=== PATIENT | female | born 1945 | race Caucasian/White ===

== ENCOUNTER 2018-06-23 07:50 | Day surgery (SDC) | payer MEDICARE, BC ==
[2018-06-23] MEDS ORDERED: Sodium Chloride 0.9% 10 ML Syringe IV ONE (07:51)
[2018-06-23] MEDS ORDERED: Dexamethasone 4 MG/ML SDV IV ONE (07:51)
[2018-06-23] MEDS ORDERED: Midazolam 1 MG/ML 2 ML SDV IV ONE (07:51)
[2018-06-23] MEDS ORDERED: Cataract Ophth Solution EYELF ONE (08:00)
[2018-06-23] MEDS ORDERED: Sodium Chloride 0.9% 10 ML Syringe FLUSH PRN (08:00)
[2018-06-23] MEDS ORDERED: Moxifloxacin 0.5% Ophth Soln 3 ML Bottle EYELF ONE (08:00)
[2018-06-23] MEDS ORDERED: Proparacaine 0.5% Ophth Soln 15 ML Bottle EYELF ONE (08:00)
[2018-06-23] MEDS ORDERED: Timolol Maleate 0.5% Ophth Soln 5 ML Bottle EYELF ONE (08:00)
[2018-06-23] MEDS ORDERED: Phenylephrine 10% Ophth Soln 5 ML Bot EYELF PRN (08:00)
[2018-06-23] MEDS ORDERED: Ondansetron 4 MG/2 ML SDV IVPUSH PRN (08:00)
[2018-06-23] MEDS ORDERED: Povidone-Iodine 5% Sterile Ophth Soln 30 ML Bottle EYELF ONE ×2 (08:00→08:59)
[2018-06-23] MEDS ORDERED: Phenylephrine 10% Ophth Soln 5 ML Bot EYELF ONE (08:00)
[2018-06-23] MEDS ORDERED: Acetaminophen 325 MG Tab PO PRN (08:00)
[2018-06-23] MEDS ORDERED: Tetracaine HCl/PF 0.5% 4 ML Bottle EYELF ONE (08:59)
[2018-06-23] MEDS ORDERED: Lidocaine 1% 30 ML SDV INJECT ONE (09:07)
[2018-06-23] MEDS ORDERED: Balanced Salt Solution Plus Ophth Irrig 500 ML Bottle IOCULAR ONE (09:08)
[2018-06-23] MEDS ORDERED: Chondroitin Sulfate/Hyaluronate Sodium Ophth Inj 0.75 ML Syringe EYELF ONE (09:09)
[2018-06-23] MEDS ORDERED: Vancomycin 500 MG SDV EYELF ONE (09:10)
[2018-06-23] MEDS ORDERED: Acetylcholine 20 MG/2 ML Intraocular Inj Kit EYELF ONE (09:15)
[2018-06-23] MEDS ORDERED: Diclofenac Sodium 0.1% Ophth Soln 5 ML Bottle EYELF ONE (09:18)
[2018-06-23] MEDS ORDERED: Apraclonidine 0.5% Ophth Soln 5 ML Bot EYELF ONE (09:18)
[2018-06-23] MEDS ORDERED: Dexamethasone/Tobramycin 0.1-0.3% Ophth Oint 3.5 GM Tube EYELF ONE (09:19)
--- NOTE | 2018-06-23 09:52 | OR ---
DATE: 06/23/2018 PREOPERATIVE DIAGNOSES: 1. Visually significant mixed cataract, left eye. 2. Primary open angle glaucoma, left eye. POSTOPERATIVE DIAGNOSES: 1. Visually significant mixed cataract, left eye. 2. Primary open angle glaucoma, left eye. PROCEDURES: 1. Extracapsular cataract extraction with intraocular lens implant. 2. Placement of iStent for glaucoma control. SURGEON: Leon Burns MD. ANESTHESIA: Local MAC. INDICATION: Ms. Arnett was seen in the clinic. She is complaining of change in vision, difficulty driving, difficulty reading, and necessary increased need for magnifying glass to see fine print. Clinical examination reveals visually significant mixed nuclear and cortical cataract and moderate open-angle glaucoma. I explained options; I offered cataract surgery; and I explained risks including the potential for infection, retinal detachment, and loss of vision amongst others. We discussed implant options. She has requested surgery with a monofocal implant. I offered surgery with or without the iStent. She requested the iStent procedure. OPERATIVE DESCRIPTION: The patient was prepped and draped in a sterile fashion and topical anesthesia was applied. Attention was placed on the operative eye. A sterile lid speculum was placed to allow operative exposure. Paracentesis was made temporal. Intracameral lidocaine was administered. Viscoelastic was injected. A full-thickness corneal incision was made using the trapezoidal blade. Bent needle cystotome was then used to make a small madeline in the anterior capsule, and a 360-degree curvilinear capsulorrhexis was created. Nucleus was then hydrodissected and hydrodelinated using balanced saline solution. Nucleus was then decompressed centrally and rotated and noted to be free of adhesions. Nucleus was then removed using the phacoemulsification handpiece. Additional viscoelastic was then injected into the capsular bag, and the intraocular lens was inserted into the capsular bag. The iStent portion of the procedure was then performed. Following removal of the nucleus and cortex, the irrigation and aspiration handpiece was inserted to remove viscoelastic from the posterior surface of the IOL. Additional viscoelastic was then inserted into the anterior chamber angle directly opposite the corneal incision. Miochol was injected into the nasal iris to promote pupillary contraction. The patient's head was then rotated 35 degrees away from the initial position. The operating microscope was also rotated 35 degrees to achieve the proper orientation. The gonioprism was then placed onto the eye. The iStent was then inserted into the anterior chamber with the right hand, and the stent was introduced into the pigmented trabecular meshwork. The stent was advanced beneath the trabecular meshwork until approximately two-thirds of the body was covered, and then the stent was released from the insertion device. The stent was then tapped into its final resting position using the insertion device. The device was then reinspected to ensure that it was securely in position. The viscoelastic was aspirated from the anterior chamber. Wound and paracentesis sites were hydrated using balanced saline solution. Vancomycin 0.1 mL was injected into the anterior chamber. Intraocular lens was inspected and noted to be clear and well centered. Postoperative drops were placed, and a sterile eye patch and shield were placed over the operative eye. The patient was then transported to the postoperative recovery area having tolerated the procedure well. No complications occurred. [facility] /[id number]
== END 2018-06-23 10:35 | disposition home or self-care (01) ==
LOC: DL.SDS 07:50
PROVIDERS: ATTEND Ophthalmology
DX: H25.812 Combined forms of age-related cataract, left eye (principal); E78.5 Hyperlipidemia, unspecified; H40.1122 Primary open-angle glaucoma, left eye, moderate stage; G47.00 Insomnia, unspecified; Z79.899 Other long term (current) drug therapy; Z88.8 Allergy status to other drugs, medicaments and biological substances; Z88.2 Allergy status to sulfonamides; Z91.013 Allergy to seafood
CPT/HCPCS: 00142; 0191T; 66984; A9270; C1783; J1100; J2250; J3370; J7050; V2632

== ENCOUNTER 2018-07-03 12:14 | Emergency (ER) | payer MEDICARE, BC ==
--- NOTE | 2018-07-03 12:52 | EDM.PDOC ---
Scribed by Sera Nova 07/03/18 1252 for Harsh Mendoza MD ED HPI GENERAL MEDICAL PROBLEM - General Chief Complaint: Eye Problems Stated Complaint: EYE SURG ON , Blurred vision left eye since surgery [id number] Time Seen by Provider: 07/03/18 12:18 Source of Information: Reports: Patient, Old Records, RN, RN Notes Reviewed History Limitations: Reports: No Limitations - History of Present Illness INITIAL COMMENTS - FREE TEXT/NARRATIVE: POD #10 s/p cataract removal with lens implant and stent in left eye by Dr. Leon Burns. Pt states the left eye vision has been very blurry since the surgery. She denies eye pain, pressure, bleeding, drainage/discharge. She states that she was seen in clinic on 06/30/[address] Mcdonald and was old everything looked ok, and that her eye medication may cause some blurriness. Pt states she has tried to reach Dr. Burns by phone but has not been able to reach anyone. Onset Date: 06/23/18 Duration: Constant Location: Reports: Other (left eye) Quality: Reports: Other (denies pain) Severity: Moderate Improves with: Reports: None Worsens with: Reports: None Associated Symptoms: Reports: No Other Symptoms - Related Data Allergies Allergy/AdvReac Type Severity Reaction Status Date / Time adhesive tape Allergy Blisters Verified 06/23/18 08:09 alendronate sodium Allergy Cannot Verified 07/03/18 12:23 [From Fosamax] Remember alprazolam Allergy Other Verified 06/23/18 08:09 brimonidine [From Alphagan P] Allergy Other Verified 06/23/18 08:09 gabapentin Allergy Swelling Verified 06/23/18 08:09 prednisone Allergy Other Verified 06/23/18 08:09 shellfish derived Allergy Anaphylactic Verified 06/23/18 08:09 Shock Sulfa (Sulfonamide Allergy Other Verified 06/23/18 08:09 Antibiotics) Home Meds: Home Meds Calcium Carb/Vit D3/Minerals [Calcium 600+D Plus Minerals] 1 each PO DAILY 06/22 [History] Cholecalciferol (Vitamin D3) [Vitamin D3] 1,000 unit PO DAILY 06/22/18 [History] Glycerin/Min Oil/Polycarbophil [Replens Vaginal Applicator] 35 gm VG .PRN PRN [History] Multivitamin with Minerals [Multivitamins with Minerals] 1 each PO DAILY [History] Zolpidem Tartrate [Ambien] 10 mg PO .PRN 06/22/18 [History] Dorzolamide/Timolol [Cosopt 2%-0.5% Ophth Soln] 1 drop EYEBOTH BID 07/03/18 [ History] Ketorolac [Acular 0.5% Ophth Soln] 1 drop EYELF BID 07/03/18 [History] Prednisolone Acetate/Pf [Prednisolone Acet 1% Eye Drop] 1 drop EYELF QID [History] Past Medical History HEENT History: Reports: Cataract, Glaucoma, Sinusitis, Other (See Below) Other HEENT History: seasonal allergies. 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 Post hepetic neuralgia Psychiatric History: Reports: Panic Attack Endocrine/Metabolic History: Reports: Osteoporosis Hematologic History: Reports: None Immunologic History: Reports: None Oncologic (Cancer) History: Reports: None Dermatologic History: Reports: Urticaria, Other (See Below) Other Dermatologic History: Rosacea - Infectious Disease History Infectious Disease History: Reports: Chicken Pox, Measles, Mumps, Rubella, Shingles - Past Surgical History Head Surgeries/Procedures: Reports: None HEENT Surgical History: Reports: Adenoidectomy, Tonsillectomy, Other (See Below) Other HEENT Surgeries/Procedures: eye lid lift Cardiovascular Surgical History: Reports: None GI Surgical History: Reports: None Female Surgical History: Reports: Hysterectomy, Other (See Below) Other Female Surgeries/Procedures: eptopic pregnacy and bleeding ovarian cyst Dermatological Surgical History: Reports: Skin Biopsy Social & Family History - Family History Family Medical History: Noncontributory - Caffeine Use Caffeine Use: Reports: Tea Caffeine Use Comment: occasionally ice tea - Living Situation & Occupation Living situation: Reports: , with Spouse Occupation: Retired ED ROS GENERAL - Review of Systems Review Of Systems: ROS reveals no pertinent complaints other than HPI. ED EXAM GENERAL W FULL EYE - Physical Exam Exam: See Below Exam Limited By: No Limitations General Appearance: Alert, WD/WN, No Apparent Distress Eye Exam: Right Eye: Normal Inspection, Left Eye: Abnormal Pupil (postsurgical lens implant), Vision Changes, Bilateral Eye: EOMI, PERRL Visual Acuity (R) 20/: 25 Visual Acuity (L) 20/: 50 With Correction: Yes Eyelids: Bilateral: Normal Appearance Conjunctiva & Sclera: Bilateral: Normal Appearance Cornea Exam: Bilateral: Normal Appearance Extraocular Movements: Bilateral: Intact Pupils: Normal Accommodation Pupillary Size: Bilateral: 4 mm Pupillary Reaction: Bilateral: Brisk Anterior Chamber: Bilateral: Normal Appearance Ears: Hearing Grossly Normal Nose: Normal Inspection Throat/Mouth: Normal Inspection Head: Atraumatic, Normocephalic Neck: Normal Inspection Respiratory/Chest: No Respiratory Distress Neurological: Alert, Oriented, CN II-XII Intact, Normal Cognition, Normal Gait, No Motor/Sensory Deficits Psychiatric: Normal Affect, Normal Mood Skin Exam: Warm, Dry, Intact, Normal Color, No Rash Course - Vital Signs Last Recorded V/S: Last Vital Signs Temp 36.2 C 07/03/18 12:21 Pulse 54 L 07/03/18 12:21 Resp 18 07/03/18 12:21 BP 158/70 H 07/03/18 12:21 Pulse Ox 99 07/03/18 12:21 - Re-Assessments/Exams Free Text/Narrative Re-Assessment/Exam: 07/03/18 12:[address] Ford Do via [facility] transfer/consult line. He advises that the pt should continue her current postop. care, and he will see her in clinic on Thursday. If she develops pain or worsening symptoms he can see her through the [place] [facility] where he will be covering call over the holiday . Departure - Departure Time of Disposition: 12:48 Disposition: Home, Self-Care 01 Condition: Fair Clinical Impression: Visual impairment, post-operative, cataract - Discharge Information Instructions: Blurred Vision, Adult, Cataract Surgery, Care After Forms: ED Department Discharge Additional Instructions: Follow up in clinic Thursday with Dr. Ford Do. Follow up at [facility] ER before Thursday if you develop eye pain, worsening vision, drainage, or discharge. I have read and agree with the documentation that has been completed regarding this visit. By signing this record, I attest that the documentation was completed in my physical presence and is an accurate record of the encounter.
== END 2018-07-03 12:58 | disposition home or self-care (01) ==
LOC: DL.ED 12:14
DX: T85.898A Other specified complication of other internal prosthetic devices, implants and grafts, initial encounter (principal); H54.7 Unspecified visual loss; F41.0 Panic disorder [episodic paroxysmal anxiety]; E78.00 Pure hypercholesterolemia, unspecified; Z88.8 Allergy status to other drugs, medicaments and biological substances; Z79.899 Other long term (current) drug therapy; Z98.42 Cataract extraction status, left eye; Z96.1 Presence of intraocular lens; Z98.890 Other specified postprocedural states
CPT/HCPCS: 99284

== ENCOUNTER 2019-07-08 11:55 | Emergency (ER) | payer MEDICARE, BC ==
--- NOTE | 2019-07-08 12:13 | EDM.PDOC ---
ED HPI GENERAL MEDICAL PROBLEM - General Chief Complaint: Bite:Animal, Insect Stated Complaint: PAST ALLERGY TO BEE STINGS/STUNG BY BEE @11:20 AM Time Seen by Provider: 07/08/19 12:05 Source of Information: Reports: Patient, RN, RN Notes Reviewed History Limitations: Reports: No Limitations - History of Present Illness INITIAL COMMENTS - FREE TEXT/NARRATIVE: Pt presents to ER by POV with c/o that she was stung at 1120HRS on the left ring finger. Pt states she is allergic to bees and usually has swelling at the site. She denies any history of anaphylaxis or swelling of the airway, wheezing , or difficulty breathing. She does not have an Epi-Pen. She did not take Benadryl or do any self care before coming to the ER. Pt denies any symptoms other than a small area of redness to the left 4th finger and hand. Onset: Today Onset Date: 07/08/19 Onset Time: 11:20 Location: Reports: Upper Extremity, Left Severity: Mild Improves with: Reports: None Worsens with: Reports: None Associated Symptoms: Reports: No Other Symptoms Left Finger-Ring Pain Score (Numeric/FACES): 3 - Related Data Allergies Allergy/AdvReac Type Severity Reaction Status Date / Time adhesive tape Allergy Blisters Verified 08/11/18 06:39 alendronate sodium Allergy Other Verified 08/11/18 06:39 [From Fosamax] alprazolam Allergy Rash Verified 08/11/18 06:39 bee venom protein (honey bee) Allergy Swelling Verified 07/08/19 12:06 brimonidine [From Alphagan P] Allergy Other Verified 08/11/18 06:39 gabapentin Allergy Swelling Verified 08/11/18 06:39 prednisone Allergy Other Verified 08/11/18 06:39 shellfish derived Allergy Anaphylactic Verified 08/11/18 06:39 Shock Sulfa (Sulfonamide Allergy Other Verified 08/11/18 06:39 Antibiotics) Home Meds: Home Meds Multivitamin with Minerals [Multivitamins with Minerals] 1 each PO DAILY [History] Zolpidem Tartrate [Ambien] 10 mg PO .PRN 06/22/18 [History] Calcium Carbonate/Vitamin D3 [Calcium 1,000 + D3 Caplet] 1 tab PO DAILY [History] Cholecalciferol (Vitamin D3) [Vitamin D3] 1,000 units PO DAILY 08/10/18 [History ] Latanoprost 1 drop EYELF BEDTIME 08/10/18 [History] Moxifloxacin HCl [Moxifloxacin] 1 drop EYERT ASDIRECTED 08/10/18 [History] Timolol [Betimol] 1 drop EYELF BID 08/10/18 [History] Past Medical History HEENT History: Reports: Cataract, Glaucoma, Sinusitis, Other (See Below) Other HEENT History: seasonal allergies. bilateral cataracts Cardiovascular History: Reports: High Cholesterol Respiratory History: Reports: None Gastrointestinal History: Reports: None Genitourinary History: Reports: None FAMILY LAW LEGAL ASSISTANT History: Reports: Other (See Below) Other FAMILY LAW LEGAL ASSISTANT History: postmenopausal atrophic vaginitis Musculoskeletal History: Reports: Arthritis, Osteoarthritis, Other (See Below) Other Musculoskeletal History: osteopenia Neurological History: Reports: Migraines, Other (See Below) Other Neuro History: Insomnia. Post hepetic neuralgia Psychiatric History: Reports: Panic Attack Endocrine/Metabolic History: Reports: Osteoporosis Hematologic History: Reports: None Immunologic History: Reports: None Oncologic (Cancer) History: Reports: None Dermatologic History: Reports: Urticaria, Other (See Below) Other Dermatologic History: Rosacea - Infectious Disease History Infectious Disease History: Reports: Chicken Pox, Measles, Mumps, Rubella, Shingles - Past Surgical History Head Surgeries/Procedures: Reports: None HEENT Surgical History: Reports: Adenoidectomy, Cataract Surgery, Tonsillectomy , Other (See Below) Other HEENT Surgeries/Procedures: eye lid lift Cardiovascular Surgical History: Reports: None Respiratory Surgical History: Reports: None GI Surgical History: Reports: None Female Surgical History: Reports: Hysterectomy, Other (See Below) Other Female Surgeries/Procedures: eptopic pregnacy and bleeding ovarian cyst Dermatological Surgical History: Reports: Skin Biopsy Social & Family History - Family History Family Medical History: Noncontributory - Tobacco Use Smoking Status *Q: Never Smoker - Caffeine Use Caffeine Use: Reports: Tea Caffeine Use Comment: occasionally ice tea - Recreational Drug Use Recreational Drug Use: No - Living Situation & Occupation Living situation: Reports: , with Spouse Occupation: Retired ED ROS GENERAL - Review of Systems Review Of Systems: ROS reveals no pertinent complaints other than HPI. ED EXAM, ANIMAL BITE - Physical Exam Exam: See Below Exam Limited By: No Limitations General Appearance: Alert, WD/WN, No Apparent Distress Nose: Normal Inspection, Normal Mucosa, No Blood Throat/Mouth: Normal Inspection, Normal Lips, Normal Teeth, Normal Gums, Normal Oropharynx, Normal Voice, No Airway Compromise Head: Atraumatic, Normocephalic Neck: Normal Inspection, Supple, Non-Tender, Full Range of Motion Respiratory/Chest: No Respiratory Distress, Lungs Clear, Normal Breath Sounds, No Accessory Muscle Use, Chest Non-Tender Cardiovascular: Regular Rate, Rhythm Extremities: Normal Range of Motion, No Pedal Edema, Normal Capillary Refill, Other (Mild blanching erythema to left 4th finger and dorsal left hand with no visible swelling, or FB.) Neurological: Alert, Oriented Skin Exam: Warm/Dry Course - Vital Signs Last Recorded V/S: Last Vital Signs Temp 96.8 F 07/08/19 12:00 Pulse 54 L 07/08/19 12:00 Resp 16 07/08/19 12:00 BP 159/61 H 07/08/19 12:00 Pulse Ox 100 07/08/19 12:00 - Re-Assessments/Exams Free Text/Narrative Re-Assessment/Exam: 07/08/19 12:10 No signs of any significant allergic reaction or anaphylaxis were present. Departure - Departure Time of Disposition: 12:10 Disposition: Home, Self-Care 01 Condition: Good Clinical Impression: Local reaction to bee sting Qualifiers: Encounter type: initial encounter Injury intent: accidental or unintentional Qualified Code(s): T63.441A - Toxic effect of venom of bees, accidental ( unintentional), initial encounter - Discharge Information *PRESCRIPTION DRUG MONITORING PROGRAM REVIEWED*: No *COPY OF PRESCRIPTION DRUG MONITORING REPORT IN PATIENT MACK: No Instructions: Bee, Wasp, or Hornet Sting, Adult Forms: ED Department Discharge Additional Instructions: Take Benadryl 25mg one by mouth every 6 hours as needed for allergic reaction. Apply ice packs as needed for redness or swelling. Return to ER if any difficulty breathing or other emergent symptoms develop.
== END 2019-07-08 12:17 | disposition home or self-care (01) ==
LOC: DL.ED 11:55
DX: T63.441A Toxic effect of venom of bees, accidental (unintentional), initial encounter (principal); M19.90 Unspecified osteoarthritis, unspecified site; Z98.890 Other specified postprocedural states; Z90.710 Acquired absence of both cervix and uterus; Z79.899 Other long term (current) drug therapy; Z88.2 Allergy status to sulfonamides; Z88.8 Allergy status to other drugs, medicaments and biological substances; Z91.013 Allergy to seafood; Z91.030 Bee allergy status; Z91.048 Other nonmedicinal substance allergy status
CPT/HCPCS: 99282

== ENCOUNTER 2021-04-01 11:13 | Emergency (ER) | payer MEDICARE, BC ==
[2021-04-01 12:05] LABS: ANION GAP 11.3 mEq/L (7-13); CHLORIDE,CL 104 mmol/L (98-107); SODIUM,NA 140 mmol/L (136-145)
--- NOTE | 2021-04-01 12:12 | CT ---
PROCEDURE INFORMATION: Exam: CT Head Without Contrast Exam date and time: 04/01/2021 11:57 AM Age: 76 years old Clinical indication: Altered mental status/memory loss and speech disturbance; Confusion or disorientation; Dysphasia; Additional info: Transient confusion w/slurred speech, off balance TECHNIQUE: Imaging protocol: Computed tomography of the head without contrast. Radiation optimization: All CT scans at this facility use at least one of these dose optimization techniques: automated exposure control; mA and/or kV adjustment per patient size (includes targeted exams where dose is matched to clinical indication); or iterative reconstruction. COMPARISON: No relevant prior studies available. FINDINGS: Brain: Normal. No hemorrhage. Unremarkable white matter. No mass effect. Cerebral ventricles: No ventriculomegaly. Paranasal sinuses: Visualized sinuses are unremarkable. No fluid levels. Mastoid air cells: Visualized mastoid air cells are well aerated. Bones/joints: Unremarkable. No acute fracture. Soft tissues: Unremarkable. IMPRESSION: No acute intracranial abnormality.
--- NOTE | 2021-04-01 12:40 | EDM.PDOC ---
"Scribed by Sera Nova 04/01/21 1149 for Sharlene Mendoza MD ED HPI GENERAL MEDICAL PROBLEM - General Chief Complaint: General Stated Complaint: IN BY AMBULANCE Time Seen by Provider: 04/01/21 11:17 Source of Information: Reports: Patient, EMS, EMS Notes Reviewed, RN, RN Notes Reviewed History Limitations: Reports: No Limitations - History of Present Illness INITIAL COMMENTS - FREE TEXT/NARRATIVE: Patient arrives from home to ED by [facility] with sudden onset of confusion, slurred speech, and unsteady gait that lasted for abut 10 to 15 minutes this morning while making breakfast. Pt states she was aware of what was going on, but felt that she was not able to mentally process or move correctly. The symptoms completely resolved before arrival to the ER. Denies headache, chest pain, palpitations, rapid HR, dizziness, lightheadedness, syncope, LOC, visual change, difficulty swallowing, loss of bowel or bladder control, numbness, or tingling. Patient takes Ambien at bedtime, starts with a 1/2 tab then if unable to sleep takes the other half around 0100HRS. Last night she did take the second half at 0100HRS. She had diarrhea yesterday, but feels well now. Onset: Today Duration: Constant Location: Reports: Generalized Severity: Moderate Improves with: Reports: None Worsens with: Reports: None Associated Symptoms: Reports: No Other Symptoms - Related Data Allergies Allergy/AdvReac Type Severity Reaction Status Date / Time adhesive tape Allergy Blisters Verified 04/01/21 11:30 alendronate sodium Allergy Other Verified 04/01/21 11:30 [From Fosamax] alprazolam Allergy Rash Verified 04/01/21 11:30 bee venom protein (honey bee) Allergy Swelling Verified 04/01/21 11:30 brimonidine [From Alphagan P] Allergy Other Verified 04/01/21 11:30 gabapentin Allergy Swelling Verified 04/01/21 11:30 prednisone Allergy Other Verified 04/01/21 11:30 shellfish derived Allergy Anaphylactic Verified 04/01/21 11:30 Shock Sulfa (Sulfonamide Allergy Other Verified 04/01/21 11:30 Antibiotics) Home Meds: Home Meds Multivitamin with Minerals [Multivitamins with Minerals] 1 each PO DAILY 06/22/18 [History] Zolpidem Tartrate [Ambien] 10 mg PO .PRN 06/22/18 [History] Calcium Carbonate/Vitamin D3 [Calcium 1,000 + D3 Caplet] 1 tab PO DAILY 08/10/18 [History] Cholecalciferol (Vitamin D3) [Vitamin D3] 1,000 units PO DAILY 08/10/18 [History] Latanoprost 1 drop EYELF BEDTIME 08/10/18 [History] Moxifloxacin HCl [Moxifloxacin] 1 drop EYERT ASDIRECTED 08/10/18 [History] Timolol [Betimol] 1 drop EYELF BID 08/10/18 [History] Past Medical History HEENT History: Reports: Cataract, Glaucoma, Sinusitis, Other (See Below) Other HEENT History: seasonal allergies. 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 Post hepetic neuralgia Psychiatric History: Reports: Panic Attack Endocrine/Metabolic History: Reports: Osteoporosis Hematologic History: Reports: None Immunologic History: Reports: None Oncologic (Cancer) History: Reports: None Dermatologic History: Reports: Urticaria, Other (See Below) Other Dermatologic History: Rosacea - Infectious Disease History Infectious Disease History: Reports: Chicken Pox, Measles, Mumps, Rubella, Shingles - Past Surgical History Head Surgeries/Procedures: Reports: None HEENT Surgical History: Reports: Adenoidectomy, Cataract Surgery, Tonsillectomy, Other (See Below) Other HEENT Surgeries/Procedures: eye lid lift Cardiovascular Surgical History: Reports: None Respiratory Surgical History: Reports: None GI Surgical History: Reports: None Female Surgical History: Reports: Hysterectomy, Other (See Below) Other Female Surgeries/Procedures: eptopic pregnacy and bleeding ovarian cyst Dermatological Surgical History: Reports: Skin Biopsy Social & Family History - Family History Family Medical History: No Pertinent Family History - Caffeine Use Caffeine Use: Reports: Tea Caffeine Use Comment: occasionally ice tea - Living Situation & Occupation Living situation: Reports: , with Spouse Occupation: Retired [facility] GENERAL - Review of Systems Review Of Systems: Comprehensive ROS is negative, except as noted in HPI. ED EXAM, GENERAL - Physical Exam Exam: See Below Exam Limited By: No Limitations General Appearance: Alert, WD/WN, No Apparent Distress Eye Exam: Left Eye: Conjunctival Injection (Chronic left eye redness), Bilateral Eye: EOMI, PERRL Ears: Normal External Exam, Hearing Grossly Normal Nose: Normal Inspection, Normal Mucosa, No Blood Throat/Mouth: Normal Inspection, Normal Lips, Normal Oropharynx, Normal Voice, No Airway Compromise Head: Atraumatic, Normocephalic Neck: Normal Inspection, Supple, Non-Tender, Full Range of Motion. No: Carotid Bruit, Lymphadenopathy (L), Lymphadenopathy (R) Respiratory/Chest: No Respiratory Distress, Lungs Clear, Normal Breath Sounds, No Accessory Muscle Use, Chest Non-Tender Cardiovascular: Normal Peripheral Pulses, Regular Rate, Rhythm, No Edema, No Gallop, No JVD, No Murmur, No Rub GI/Abdominal: Normal Bowel Sounds, Soft, Non-Tender, No Organomegaly, No Distention, No Abnormal Bruit, No Mass Back Exam: Normal Inspection. No: Vertebral Tenderness Extremities: Normal Inspection, Normal Range of Motion, Non-Tender, Normal Capillary Refill Neurological: Alert, Oriented, CN II-XII Intact, Normal Cognition, Normal Gait, No Motor/Sensory Deficits Psychiatric: Normal Affect, Normal Mood Skin Exam: Warm, Dry, Intact, Normal Color, No Rash #1 Interpretation EKG Date: 04/01/21 Time: 11:35 Rhythm: Other (sinus rhythm) Rate (Beats/Min): 50 [place]: Normal P-Wave: Present QRS: Other (borderline low voltage, extremity leads) ST-T: Normal QT: Normal Comparison: NA - No Prior EKG Course - Vital Signs Last Recorded V/S: Last Vital Signs Temp 98.1 F 04/01/21 11:25 Pulse 52 L 04/01/21 11:25 Resp 14 04/01/21 11:25 BP 109/66 04/01/21 11:25 Pulse Ox 100 04/01/21 11:25 Orthostatic Blood Pressure [ 129/70 Side, Right] Orthostatic Blood Pressure [ 119/70 Standing] Orthostatic Blood Pressure [ 119/60 Supine] - Orders/Labs/Meds Orders: Active Orders 24 hr Category Date Time Status EKG 12 Lead [EKG Documentation Completion] [RC] STAT Care 04/01/21 11:23 Active Orthostatic Vital Signs [RC] ASDIRECTED Care 04/01/21 11:52 Active CULTURE URINE [RM] Stat Lab 04/01/21 11:23 Received Labs: Laboratory Tests 04/01/21 04/01/21 04/01/21 Range/Units 11:23 11:23 11:26 WBC 5.6 (5.0-10.0) 10^3/uL RBC 4.19 L (4.2-5.4) 10^6/uL Hgb 13.5 (12.0-16.0) g/dL Hct 39.9 (37.0-47.0) % MCV 95.2 (80-100) fL MCH 32.2 (27.0-34.0) pg MCHC 33.8 (33.0-35.0) g/dL Plt Count 272 (150-450) 10^3/uL Neut % (Auto) 61.4 (42.2-75.2) % Lymph % (Auto) 20.7 (20.5-50.1) % [place] % (Auto) 13.8 H (2-8) % Eos % (Auto) 3.6 H (1.0-3.0) % Baso % (Auto) 0.5 (0.0-1.0) % Sodium (136-145) mmol/L Potassium (3.5-5.1) mmol/L Chloride (98-107) mmol/L Carbon Dioxide (21-32) mmol/L Anion Gap (7-13) mEq/L BUN (7-18) mg/dL Creatinine (0.55-1.02) mg/dL Est Cr Clr Drug Dosing mL/min Estimated GFR (MDRD) BUN/Creatinine Ratio (No establ ref range) Glucose (70-99) mg/dL Calcium (8.5-10.1) mg/dL Magnesium (1.8-2.4) mg/dL Total Bilirubin (0.2-1.0) mg/dL AST (15-37) U/L ALT (14-59) U/L Alkaline Phosphatase (46-116) U/L Troponin I (0.000-0.056) ng/mL Total Protein (6.4-8.2) g/dL Albumin (3.4-5.0) g/dL Globulin Albumin/Globulin Ratio TSH, Ultra Sensitive (0.36-3.74) uIU/mL Urine Color Yellow (YELLOW) Urine Appearance Slightly cloudy (CLEAR) Urine pH 7.0 (5.0-9.0) Ur Specific Douglas 1.020 (1.005-1.030) Urine Protein Negative (NEGATIVE) Urine Glucose (UA) Negative (NEGATIVE) Urine Ketones Negative (NEGATIVE) Urine Occult Blood Trace-intact H (NEGATIVE) Urine Nitrite Negative (NEGATIVE) Urine Bilirubin Negative (NEGATIVE) Urine Urobilinogen 0.2 (0.2-1.0) mg/dL Ur Leukocyte Esterase Trace H (NEGATIVE) Urine RBC 0-5 /HPF Urine WBC 0-5 (0-5/HPF) /HPF Ur Epithelial Cells Rare (NOT SEEN) /HPF Urine Bacteria Rare (0-FEW/HPF) /HPF Urine Mucus Rare (NOT SEEN) /LPF Urine Opiates Screen Negative (NEGATIVE) Ur Oxycodone Screen Negative (NEGATIVE) Urine Methadone Screen Negative (NEGATIVE) Ur Barbiturates Screen Negative (NEGATIVE) U Tricyclic Antidepress Negative (NEGATIVE) Ur Phencyclidine Scrn Negative (NEGATIVE) Ur Amphetamine Screen Negative (NEGATIVE) U Methamphetamines Scrn Negative (NEGATIVE) Urine MDMA Screen Negative (NEGATIVE) U Benzodiazepines Scrn Negative (NEGATIVE) Urine Cocaine Screen Negative (NEGATIVE) U Marijuana (THC) Screen Negative (NEGATIVE) Ethyl Alcohol (0) mg/dL 04/01/21 Range/Units 11:26 WBC (5.0-10.0) 10^3/uL RBC (4.2-5.4) 10^6/uL Hgb (12.0-16.0) g/dL Hct (37.0-47.0) % MCV (80-100) fL MCH (27.0-34.0) pg MCHC (33.0-35.0) g/dL Plt Count (150-450) 10^3/uL Neut % (Auto) (42.2-75.2) % Lymph % (Auto) (20.5-50.1) % [place] % (Auto) (2-8) % Eos % (Auto) (1.0-3.0) % Baso % (Auto) (0.0-1.0) % Sodium 140 (136-145) mmol/L Potassium 4.3 (3.5-5.1) mmol/L Chloride 104 (98-107) mmol/L Carbon Dioxide 29 (21-32) mmol/L Anion Gap 11.3 (7-13) mEq/L BUN 20 H (7-18) mg/dL Creatinine 0.88 (0.55-1.02) mg/dL Est Cr Clr Drug Dosing 44.36 mL/min Estimated GFR (MDRD) > 60 BUN/Creatinine Ratio 22.7 (No establ ref range) Glucose 99 (70-99) mg/dL Calcium 8.9 (8.5-10.1) mg/dL Magnesium 2.1 (1.8-2.4) mg/dL Total Bilirubin 0.6 (0.2-1.0) mg/dL AST 26 (15-37) U/L ALT 53 (14-59) U/L Alkaline Phosphatase 110 (46-116) U/L Troponin I < 0.017 (0.000-0.056) ng/mL Total Protein 6.7 (6.4-8.2) g/dL Albumin 3.8 (3.4-5.0) g/dL Globulin 2.9 Albumin/Globulin Ratio 1.3 TSH, Ultra Sensitive 1.58 (0.36-3.74) uIU/mL Urine Color (YELLOW) Urine Appearance (CLEAR) Urine pH (5.0-9.0) Ur Specific Douglas (1.005-1.030) Urine Protein (NEGATIVE) Urine Glucose (UA) (NEGATIVE) Urine Ketones (NEGATIVE) Urine Occult Blood (NEGATIVE) Urine Nitrite (NEGATIVE) Urine Bilirubin (NEGATIVE) Urine Urobilinogen (0.2-1.0) mg/dL Ur Leukocyte Esterase (NEGATIVE) Urine RBC /HPF Urine WBC (0-5/HPF) /HPF Ur Epithelial Cells (NOT SEEN) /HPF Urine Bacteria (0-FEW/HPF) /HPF Urine Mucus (NOT SEEN) /LPF Urine Opiates Screen (NEGATIVE) Ur Oxycodone Screen (NEGATIVE) Urine Methadone Screen (NEGATIVE) Ur Barbiturates Screen (NEGATIVE) U Tricyclic Antidepress (NEGATIVE) Ur Phencyclidine Scrn (NEGATIVE) Ur Amphetamine Screen (NEGATIVE) U Methamphetamines Scrn (NEGATIVE) Urine MDMA Screen (NEGATIVE) U Benzodiazepines Scrn (NEGATIVE) Urine Cocaine Screen (NEGATIVE) U Marijuana (THC) Screen (NEGATIVE) Ethyl Alcohol < 3 (0) mg/dL - Radiology Interpretation Free Text/Narrative:: [facility] Final Radiology Report Call: [phone] assistance Online chat: [email or web address] Name: MONICA CUADRA Age: 76Years F Date: 04/01/2021 SSN: -- : [id number] Study: CT HEAD WO CONT Requesting Physician: SHARLENE MENDOZA Images: [id number] Addl Studies: Provided Clinical History: Transient confusion w/slurred speech, off balance Contrast: Without Contrast Medium: Contrast Amount: Contrast Method: Page 1 of 2 PROCEDURE INFORMATION: Exam: CT Head Without Contrast Exam date and time: 04/01/2021 11:57 AM Age: 76 years old Clinical indication: Altered mental status/memory loss and speech disturbance; Confusion or disorientation; Dysphasia; Additional info: Transient confusion w/slurred speech, off balance TECHNIQUE: Imaging protocol: Computed tomography of the head without contrast. Radiation optimization: All CT scans at this facility use at least one of these dose optimization techniques: automated exposure control; mA and/or kV adjustment per patient size (includes targeted exams where dose is matched to clinical indication); or iterative reconstruction. COMPARISON: No relevant prior studies available. FINDINGS: Brain: Normal. No hemorrhage. Unremarkable white matter. No mass effect. Cerebral ventricles: No ventriculomegaly. Paranasal sinuses: Visualized sinuses are unremarkable. No fluid levels. Mastoid air cells: Visualized mastoid air cells are well aerated. Bones/joints: Unremarkable. No acute fracture. Soft tissues: Unremarkable. IMPRESSION: No acute intracranial abnormality. Thank you for allowing us to participate in the care of your patient. Dictated and Authenticated by: Ford Patel MD MONICA CUADRA | Final Radiology Report CONFIDENTIALITY STATEMENT This report is intended only for use by the referring physician, and only in accordance with law. If you received this in error, call [phone]. Page 2 of 2 04/01/2021 12:11 PM Central Time ([place] & [place]) - Re-Assessments/Exams Free Text/Narrative Re-Assessment/Exam: 04/01/21 12:36 Pt was symptoms free from the time of arrival until discharge. I found no abnormalities on exam, and no lab or imaging explanation for the pt's reported symptoms. Exam findings and diagnostic results explained to the pt and her . Pt states she feels well and wishes to be discharged home. She agrees to return to ER if symptoms return or worsen, and will f/u in clinic later this week. Departure - Departure Time of Disposition: 12:38 Disposition: Home, Self-Care 01 Condition: Good Clinical Impression: Encounter for medical screening examination, Transient alteration of awareness - Discharge Information *PRESCRIPTION DRUG MONITORING PROGRAM REVIEWED*: No *COPY OF PRESCRIPTION DRUG MONITORING REPORT IN PATIENT MACK: No Instructions: Medical Screening Exam Forms: ED Department Discharge Additional Instructions: Return to ER if you have any recurrent symptoms, or if any new symptoms develop. Follow up in clinic this week with your primary doctor for recheck and further evaluation. Sepsis Event Note (ED) - Focused Exam Vital Signs: Vital Signs Temp Pulse Resp BP Pulse Ox 04/01/21 11:25 98.1 F 52 L 14 109/66 100 - My Orders Last 24 Hours: My Active Orders 04/01/21 11:23 EKG 12 Lead [EKG Documentation Completion] [RC] STAT CULTURE URINE [RM] Stat 04/01/21 11:52 Orthostatic Vital Signs [RC] ASDIRECTED - Assessment/Plan Last 24 Hours: My Active Orders 04/01/21 11:23 EKG 12 Lead [EKG Documentation Completion] [RC] STAT CULTURE URINE [RM] Stat 04/01/21 11:52 Orthostatic Vital Signs [RC] ASDIRECTED I have read and agree with the documentation that has been completed regarding this visit. By signing this record, I attest that the documentation was completed in my physical presence and is an accurate record of the encounter."
== END 2021-04-01 12:52 | disposition home or self-care (01) ==
LOC: DL.ED 11:13
DX: Z00.00 Encounter for general adult medical examination without abnormal findings (principal); R40.4 Transient alteration of awareness; E78.00 Pure hypercholesterolemia, unspecified; Z88.2 Allergy status to sulfonamides; Z91.013 Allergy to seafood; Z88.5 Allergy status to narcotic agent; Z91.030 Bee allergy status; Z91.048 Other nonmedicinal substance allergy status
CPT/HCPCS: 36415; 70450; 80053; 80305-QW; 80307; 81001; 83735; 84443; 84484; 85025; 87086; 93005; 93010; 99283; 99285-25

== ENCOUNTER 2022-02-14 16:25 | Emergency (ER) | payer MEDICARE, BC ==
[2022-02-14] MEDS ORDERED: Sodium Chloride 0.9% 10 ML Syringe FLUSH PRN (16:44)
[2022-02-14 17:54] LABS: CHLORIDE,CL 105 mmol/L (98-107); SODIUM,NA 143 mmol/L (136-145)
[2022-02-14] MEDS ORDERED: Sodium Chloride 0.9% 1,000 ML IV ONE (18:01)
== END 2022-02-14 18:36 | disposition home or self-care (01) ==
LOC: DL.ED 16:25
DX: H53.8 Other visual disturbances (principal); E86.0 Dehydration; F41.9 Anxiety disorder, unspecified; E78.00 Pure hypercholesterolemia, unspecified; M19.90 Unspecified osteoarthritis, unspecified site; Z91.048 Other nonmedicinal substance allergy status; Z91.030 Bee allergy status; Z88.5 Allergy status to narcotic agent; Z88.2 Allergy status to sulfonamides; Z91.013 Allergy to seafood; Z79.899 Other long term (current) drug therapy
CPT/HCPCS: 36415; 70450; 80053; 81001; 83735; 84443; 85025; 85610; 86140; 93005; 99284; J3490; J7030; 93010

== ENCOUNTER 2022-02-16 09:55 | Emergency (ER) | payer MEDICARE, BC ==
[2022-02-16 11:23] LABS: ANION GAP 13.3 mEq/L (7-13)
== END 2022-02-16 11:42 | disposition home or self-care (01) ==
LOC: DL.ED 09:55
DX: F41.9 Anxiety disorder, unspecified (principal); Z72.820 Sleep deprivation
CPT/HCPCS: 36415; 70450; 80053; 81001; 82140; 83605; 83735; 84484; 85025; 93005; 93010; 99284; 99284-25